=== PATIENT | female | born 1970 | race Caucasian/White ===

== ENCOUNTER 2018-04-09 21:12 | Inpatient (IN) | payer BC ==
[~2018-04-09] VITALS: Ht 162.6 cm; Wt 113.5 kg
[~2018-04-09 21:12] MED LIST: HYDROCHLOROTH12.5 M3 PO; HYDROCHLOROTHIA25 MG PO; LEVOXYL150 MCG PO; LEVOXYL175 MCG PO; WOMEN MULTIVIT1 EACH PO
[2018-04-10 11:02] VITALS: BP 132/72
[2018-04-10 19:34] VITALS: BP 157/90
[2018-04-10 20:08] LABS: HEMATOCRIT 35.1 % (36.0-46.0); HEMOGLOBIN 10.6 G/DL (11.9-15.5); MCH 23.4 PG (29.0-34.0); MCHC 30.2 G/DL (30.0-36.0); MCV 77.5 FL (83-99); PLATELET COUNT 378 K/uL (156-360); RBC DIS.WIDTH-SD 50.5 % (39-53); RED BLOOD COUNT 4.53 M/uL (3.80-5.20)
[2018-04-10 20:52] LABS: CHLORIDE 101 MEQ/L (99-109); CREATININE 0.7 MG/DL (0.6-1.3); GFR ESTIMATE (CALCULATED) > 59 mL/min/; GLUCOSE 153 mg/dL (70-99); POTASSIUM 3.5 MEQ/L (3.7-5.4); SODIUM 137 MEQ/L (136-147); UREA NITROGEN (BUN) 10 mg/dL (9-23)
[2018-04-11 00:09] VITALS: BP 141/78
[2018-04-11 04:27] VITALS: BP 138/78
[2018-04-11 06:00] LABS: HEMATOCRIT 31.7 % (36.0-46.0); HEMOGLOBIN 9.7 G/DL (11.9-15.5); MCHC 30.6 G/DL (30.0-36.0); MCV 78.3 FL (83-99); PLATELET COUNT 354 K/uL (156-360); RBC DIS.WIDTH-SD 50.5 % (39-53); RED BLOOD COUNT 4.05 M/uL (3.80-5.20); WHITE BLOOD COUNT 13.7 K/uL (4.1-10.2)
[2018-04-11 06:16] LABS: CHLORIDE 102 MEQ/L (99-109); CREATININE 0.7 MG/DL (0.6-1.3); GFR ESTIMATE (CALCULATED) > 59 mL/min/; GLUCOSE 126 mg/dL (70-99); POTASSIUM 4.4 MEQ/L (3.7-5.4); SODIUM 140 MEQ/L (136-147); UREA NITROGEN (BUN) 8 mg/dL (9-23)
[2018-04-11 08:28] VITALS: BP 144/80
[2018-04-11 15:35] VITALS: BP 155/85
[2018-04-11 19:48] VITALS: BP 143/78; BP 160/83
[2018-04-12 00:33] VITALS: BP 142/78
[2018-04-12 04:32] VITALS: BP 148/92
[2018-04-12 07:30] LABS: HEMATOCRIT 34.1 % (36.0-46.0); HEMOGLOBIN 10.4 G/DL (11.9-15.5); MCHC 30.5 G/DL (30.0-36.0); MCV 78.8 FL (83-99); PLATELET COUNT 348 K/uL (156-360); RBC DIS.WIDTH-CV 17.7 % (11.8-14.6); RBC DIS.WIDTH-SD 49.8 % (39-53); RED BLOOD COUNT 4.33 M/uL (3.80-5.20); WHITE BLOOD COUNT 11.3 K/uL (4.1-10.2)
[2018-04-12 07:51] LABS: CHLORIDE 103 MEQ/L (99-109); CREATININE 0.6 MG/DL (0.6-1.3); GFR ESTIMATE (CALCULATED) > 59 mL/min/; GLUCOSE 107 mg/dL (70-99); POTASSIUM 3.6 MEQ/L (3.7-5.4); SODIUM 139 MEQ/L (136-147); UREA NITROGEN (BUN) 5 mg/dL (9-23)
[2018-04-12 08:30] VITALS: BP 151/88
[2018-04-12] MEDS ORDERED: TRAMADOL HCL50 MG PO (09:00)
== END 2018-04-12 10:49 | disposition home or self-care (01) | DRG 742 ==
LOC: ENRESERV 21:12 → 2EAST 04-10 10:40 → 2SOUTH 04-10 10:40 → ENRESERV 04-10 16:22 → 2EAST 04-10 19:13
PROVIDERS: Obstetrics & Gynecology Gynecologic Oncology
DX: D25.9 Leiomyoma of uterus, unspecified (principal); N80.1 Endometriosis of ovary; N80.3 Endometriosis of pelvic peritoneum; N80.0 Endometriosis of uterus; N83.201 Unspecified ovarian cyst, right side; N83.9 Noninflammatory disorder of ovary, fallopian tube and broad ligament, unspecified; E66.09 Other obesity due to excess calories; Z68.41 Body mass index [BMI] 40.0-44.9, adult
CPT/HCPCS: 36415; 80048; 85027; 86850; 86900; 86901; 86920; 88305; 88307; 94799; J0131; J0690; J1100; J1170; J1650; J1885; J2250; J2405; J2710; J2765; J2795; J3010; J7643; Q0175